=== PATIENT | female | born 1990 | race African-American/Black ===

== ENCOUNTER 2022-07-05 13:29 | Emergency (ER) | payer BC, SELFPAY ==
[2022-07-05 13:36] VITALS: BP 100/47; PULSE 98; RESP 14; TEMP 36.1; O2SAT 99
--- NOTE | 2022-07-05 14:04 | ED.URI ---
HPI - URI/Sore Throat General Chief Complaint: Upper Respiratory Infection Stated Complaint: covid test Time Seen by Provider: 07/05/22 14:05 Source: patient, RN notes reviewed and old records reviewed Mode of arrival: ambulatory Limitations: no limitations History of Present Illness HPI Narrative: 31 year old female who presents to [facility] with patient reporting that she tested positive for COVID one week ago not running fever but continues to have intermittent headache ,cough, feels lightheaded and is dizzy with some nausea vomiting and sore throat. She tested herself yesterday on home COVID test and was still positive she states. Patient is 33 weeks and requesting COVID test to return to work. MD elicited complaint: other (test positive for COVID 1 week ago still having some ill symptoms.) Pertinent past history: asthma and other (presently 33 weeks ) Pain scale (0-10): 6 Able to tolerate fluids by mouth: Yes Treatments prior to arrival: acetaminophen Related Data Home Medications Medication Instructions Recorded Confirmed albuterol 90 mcg/actuation aerosol 90 mcg inhalation Q4H PRN Dyspnea 07/05/22 07/05/22 inhaler vits no.126-ferrous fum 1 tablet PO DAILY 07/05/22 07/05/22 28 mg iron-folic acid 800 mcg tablet (Classic ) Allergies Allergy/AdvReac Type Severity Reaction Status Date / Time acetaminophen [From Percocet] Allergy Seizure Verified 07/05/22 13:49 morphine Allergy Swelling Verified 07/05/22 13:49 oxycodone [From Percocet] Allergy Seizure Verified 07/05/22 13:49 Review of Systems Review of Systems: CONSTITUTIONAL: Denies malaise, chills, sweats, or fever. EYES: Denies visual changes, redness, or discharge. ENT: Reports rhinorrhea, congestion, sinus pain,no otalgia intermittent sore throat. CARDIOVASCULAR: Denies chest pain, palpitations, or edema. RESPIRATORY: Reports cough.? Denies dyspnea. GASTROINTESTINAL: Denies abdominal pain,positive for nausea, vomiting, no diarrhea SKIN: Denies rash or itching. MUSCULOSKELETAL: Denies myalgia. NEUROLOGIC: reports headache. some dizziness stated All systems reviewed & are unremarkable except as noted in HPI and below PMFSH Past Medical History Medical History (Updated 07/07/22 @ 13:28 by Misti Pacheco NP) Asthma Heart murmur Surgical History Surgical History (Updated 07/07/22 @ 13:30 by Misti Pacheco NP) History of dilatation and curettage Social History Social History (Updated 07/07/22 @ 13:29 by Misti Pacheco NP) Smoking status: Former smoker Additional smoking assessment comments: quit 11/05 Alcohol intake: former Alcohol use details: 33 weeks Substance use type: does not use Living arrangements: with family Gender identity (if verbalized by the patient): Female Comments At time of signature, agree with nursing past medical, surgical, social and family history. There is no relevant family history pertinent to the presenting complaint Exam Narrative: GENERAL: Well-appearing, well-nourished, and in no acute distress. HEAD: Normocephalic EYES: PERRLA, conjunctivae clear ENT: Nares clear, turbinates edematous and erythematous, clear discharge. Mucous membranes moist. TM pearly sanchez with dull light reflex bilaterally; no tragal tenderness. Oropharynx erythematous without lesions. Tonsils not enlarged and without exudate, no drooling, no hoarseness, no trismus, uvula midline.post nasal drainage NECK: Supple. No lymphadenopathy CHEST: Clear to auscultation, breath sounds equal. No wheezing, rhonchi, rales, or stridor. No respiratory distress, speaks in full sentences.cough noted SAO2 99% on room air HEART: Regular rate and rhythm. No murmur heard. SKIN: Warm, dry, no rash. NEURO: Alert and oriented x3. PSYCH: Normal mood and affect Course Course Emergency Course: Patient is aware of diagnosis, understands and agrees to treatmen
== END 2022-07-05 14:54 | disposition home or self-care (01) ==
PROVIDERS: Emergency Provider Registered Nurse; PCP Internal Medicine
DX: O98.513 Other viral diseases complicating pregnancy, third trimester (principal); Z3A.33 33 weeks gestation of pregnancy; U07.1 COVID-19; O99.513 Diseases of the respiratory system complicating pregnancy, third trimester; J45.909 Unspecified asthma, uncomplicated; O99.891 Other specified diseases and conditions complicating pregnancy; Z3A.00 Weeks of gestation of pregnancy not specified; R01.1 Cardiac murmur, unspecified; Z87.891 Personal history of nicotine dependence
CPT/HCPCS: 87426; 99212; C9803; G0463